=== PATIENT | female | born 1995 | race Two or more races ===

== ENCOUNTER 2024-06-06 03:04 | Emergency (ER) | payer SELFPAY ==
[2024-06-06 03:07] VITALS: BP 110/72; PULSE 65; RESP 12; TEMP 36.8; O2SAT 100
--- NOTE | 2024-06-06 03:20 | ED_ITS ---
HPI - General Adult General Chief complaint: Wound/Laceration Stated complaint: left hand lac Time Seen by Provider: 06/06/24 03:06 History of Present Illness HPI narrative: Patient presents to the emergency department with sustaining patient to her left hand. Patient in knife and accidentally missed the and the tip of the knife and jabbed between her left thumb and index finger. Patient states that her tetanus is up-to-date within the last year. Denies any additional injuries or concerns at this time.. Related Data Allergies Allergy/AdvReac Type Severity Reaction Status Date / Time No Known Allergies Allergy Verified 06/06/24 03:21 Review of Systems Review of Systems: All systems are reviewed and are negative unless stated otherwise in the HPI. Exam Narrative: General: Alert, awake, afebrile, in no acute distress. HEENT: PERRL, no rhinorrhea, no post nasal drip, oropharynx clear. Cardiovascular: Regular rate and rhythm, no murmurs, rubs or gallops, no peripheral edema. Respiratory: Clear to auscultation bilaterally, no tachypnea, no wheezing, no rhonchi, no rubs, no respiratory distress. Abdomen: Soft, nontender, nondistended, no rebound, no guarding, no peritoneal signs. Musculoskeletal: No joint swelling or deformity, normal muscle tone. Skin: No rashes or petechia, no signs of infection, 1 cm laceration to left hand between left thumb and index finger. Neurological: Alert and oriented to person, place, and time. Follows all commands. No focal deficits, speech is clear and fluent. Course Vital Signs Vital signs: Vital Signs Temperature 98.2 F 06/06/24 03:07 Pulse Rate 65 06/06/24 03:07 Respiratory Rate 12 06/06/24 03:07 Blood Pressure 110/72 06/06/24 03:07 Pulse Oximetry 100 06/06/24 03:07 Oxygen Delivery Room Air 06/06/24 03:07 Temperature 98.2 F 06/06/24 03:07 Pulse Rate 65 06/06/24 03:07 Respiratory Rate 12 06/06/24 03:07 Blood Pressure 110/72 06/06/24 03:07 Pulse Oximetry 100 06/06/24 03:07 Oxygen Delivery Room Air 06/06/24 03:07 Procedures Laceration Laceration 1: Date: 06/06/24 Time: 03:44 Site: hand Side (If applicable): left Size (cm): 1 Description: linear Depth: simple, single layer Local Anesthetic: lidocaine 1% Amount of anesthesia used (mL): 1 Pre-repair: wound explored, irrigated and wound margins revised ====== Skin Level ====== Skin layer closed with: nylon Size (cm): 4-0 Number of sutures: 3 Technique: simple, interrupted ====== Subcutaneous Layer ====== ====== Muscle Layer ====== ====== Tendon Layer ====== Medical Decision Making MDM Narrative Medical decision making narrative: The patient was evaluated by myself in the emergency department. History is obtained from patient who is an independent historian and physical exam was performed. External medical records were reviewed at this time. Laceration was repaired as detailed under procedural note. Differential diagnosis considerations include lacerations, abrasions. Comorbidities impacting this visit include none. I have evaluated and discussed social determinants of health with the patient that could potentially impact subsequent diagnosis and treatment plans. On repeat assessment of the patient, reevaluation revealed that the patient is doing well and is in no acute distress. Patient symptoms have improved since she arrived to our emergency department. Repeat vital signs were all reviewed and noted to be stable. Differential diagnosis and treatment plan were discussed with the patient at bedside. Patient agrees with discussion and after shared medical decision making agrees with discharge. All questions were answered to the patient's satisfaction. Patient will follow up with her PCP within the next week. Patient was informed that she will need to have the 3 sutures removed by medical professional within the next 7-10 days. Patient was provided with strict return precautions and instructed to return to the emergency department if any new or worsening symptoms develop. The patient was discharged in stable condition. Vital Signs Vital Signs: Vital Signs Temperature 98.2 F 06/06/24 03:07 Pulse Rate 65 06/06/24 03:07 Respiratory Rate 12 06/06/24 03:07 Blood Pressure 110/72 06/06/24 03:07 Pulse Oximetry 100 06/06/24 03:07 Oxygen Delivery Room Air 06/06/24 03:07 Temperature 98.2 F 06/06/24 03:07 Pulse Rate 65 06/06/24 03:07 Respiratory Rate 12 06/06/24 03:07 Blood Pressure 110/72 06/06/24 03:07 Pulse Oximetry 100 06/06/24 03:07 Oxygen Delivery Room Air 06/06/24 03:07 Discharge Plan Discharge Clinical Impression: Laceration Patient Disposition: Home, Self-Care Condition: Improved Instructions: Antibiotic Form, Laceration (ED) Additional Instructions: You will need to have the 3 sutures that were placed today removed by medical professional within the next 7-10 days. Return to the emergency department if any new or worsening symptoms develop. Follow-up/Referrals: Abhijit Qureshi DO [Physician] - 1 Week PHYSICIAN,RECRUITING AND SELECTION CONSULTANT [Primary Care Provider] - Time of Disposition: 03:40
[2024-06-06 03:47] VITALS: BP 112/70; PULSE 68; RESP 13; O2SAT 99
[2024-06-06 03:48] VITALS: BP 112/70; PULSE 68; RESP 13; O2SAT 99
== END 2024-06-06 03:51 | disposition home or self-care (01) ==
LOC: ANHED 03:44
PROVIDERS: Emergency Provider Emergency Medicine
DX: S61.412A Laceration without foreign body of left hand, initial encounter (principal); W26.0XXA Contact with knife, initial encounter
CPT/HCPCS: 12001; 99282